=== PATIENT | female | born 1985 | race African-American/Black ===

== ENCOUNTER 2016-04-22 13:00 | Emergency (ER) | payer OTHER ==
[~2016-04-22] VITALS: Ht 175.3 cm; Wt 76.2 kg
[~2016-04-22 13:00] MED LIST: AMLO2.5T PO; BENZ1TAB7 PO; BENZ2TAB7 PO; BUME1TAB4 PO; DIPH-824 PO; DIPH25TA62 PO; DOCU-25 PO; FAMO20TA8 PO; FLUP25VI4 IM; GUAI118S20 PO; IBUP-1481 PO; LACT10SO PO; LACT10SO29 PO; LORA1TAB PO; LORA1TAB82 PO; MECL-102 PO; MEDR150D9 IM; MEDR150V4 IM; SENN8.6C5 PO; SENN8.6T6 PO; TRIA1TAB98 PO
[2016-04-22] MEDS ORDERED: IBUPROFEN 600 MG TABLET PO ONE ×2 (13:27→13:30)
[2016-04-22 15:08] VITALS: BP 134/86
== END 2016-04-22 15:09 | disposition home or self-care (01) ==
LOC: ER 13:02
DX: R07.9 Chest pain, unspecified (principal); M94.0 Chondrocostal junction syndrome [Tietze]; I10 Essential (primary) hypertension; K21.9 Gastro-esophageal reflux disease without esophagitis; J45.909 Unspecified asthma, uncomplicated; F32.9 Major depressive disorder, single episode, unspecified; F20.9 Schizophrenia, unspecified; E66.9 Obesity, unspecified
CPT/HCPCS: 71010; 93005; 99284; A4606; Z7610

== ENCOUNTER 2016-06-01 01:43 | Emergency (ER) | payer OTHER ==
[~2016-06-01] VITALS: Ht 162.6 cm; Wt 74.8 kg
[2016-06-01 01:43] VITALS: BP 105/59
== END 2016-06-01 03:07 ==
LOC: ER 01:46
DX: R21 Rash and other nonspecific skin eruption (principal); I10 Essential (primary) hypertension; J45.909 Unspecified asthma, uncomplicated; K21.9 Gastro-esophageal reflux disease without esophagitis; F32.9 Major depressive disorder, single episode, unspecified; F20.9 Schizophrenia, unspecified; E66.9 Obesity, unspecified
CPT/HCPCS: A4606; Z7610

== ENCOUNTER → 2019-04-06 | Emergency (ER) | payer MEDICAID, OTHER ==
[~2019-04-06] VITALS: Ht 160 cm; Wt 82.6 kg
[~2019-04-06] MED LIST changes: -AMLO2.5T PO; +AMLO2.5T4 PO; -BUME1TAB4 PO; +BUME1TAB8 PO; +DEXAMETHASONE SOD PHOSPHATE 10 MG/ML VIAL ONE; +DEXAMETHASONE SOD PHOSPHATE 4 MG/ML VIAL IM ONE; +DOCU-141 PO; -DOCU-25 PO; -IBUP-1481 PO; +IBUP-1953 PO; +KETOROLAC TROMETHAMINE INJ 30 MG/ML VIAL ONE; +KETOROLAC TROMETHAMINE INJ 60 MG/2 ML VIAL IM ONE; +LORA-259 PO; -LORA1TAB82 PO; -MECL-102 PO; +MECL-159 PO; +SENN-168 PO; -SENN8.6T6 PO
[2019-04-06 13:35] VITALS: BP 110/56
== END | disposition home or self-care (01) ==
LOC: ER 13:06
DX: M54.41 Lumbago with sciatica, right side (principal); G20 Parkinson's disease; Z79.899 Other long term (current) drug therapy
CPT/HCPCS: 96372 ×2; 99283; J1100; J1885